=== PATIENT | female | born 1965 | race Caucasian/White ===

== ENCOUNTER 2021-05-18 04:16 | Day surgery (SDC) | payer OTHER, BC ==
[2021-05-13 17:17] VITALS: BMI 31.1
[2021-05-18] MEDS ORDERED: LIDOCAINE HCL 1%, 10 MG/ML (20ML VIAL) ONE (09:00)
[2021-05-18] MEDS ORDERED: BUPIVACAINE HCL/PF 0.5% (5MG/ML) 10 ML VIAL ONE ×2 (09:00→10:28)
[2021-05-18] MEDS ORDERED: ONDANSETRON 4 MG/2 ML VIAL IVPUSH PRN (09:10)
[2021-05-18] MEDS ORDERED: ACETAMINOPHEN 500 MG TABLET (FP) PO PRN (09:10)
[2021-05-18] MEDS ORDERED: MIDAZOLAM HCL 2 MG/2 ML SINGLE DOSE VIAL ONE (09:20)
[2021-05-18] MEDS ORDERED: DEXMEDETOMIDINE HCL 200 MCG/2 ML IVPB ONE (09:22)
[2021-05-18] MEDS ORDERED: LIDOCAINE HCL 1%, 10 MG/ML (20ML VIAL) NR ONE (09:35)
[2021-05-18] MEDS ORDERED: BUPIVACAINE HCL/PF 0.5% (5MG/ML) 10 ML VIAL IJ ONE ×2 (09:36)
[2021-05-18] MEDS ORDERED: ceFAZolin 2 GRAM PREMIX BAG IVPB ONE (09:40)
[2021-05-18] MEDS ORDERED: PROPOFOL 20 ML ONE (09:45)
[2021-05-18] MEDS ORDERED: ROCURONIUM BROMIDE 50 MG/5 ML SYRINGE ONE (09:45)
[2021-05-18] MEDS ORDERED: BACITRACIN 50,000 UNITS VIAL TP ONE (09:47)
[2021-05-18] MEDS ORDERED: TRIAMCINOLONE ACET 40MG/1ML VIAL ONE (10:28)
[2021-05-18] MEDS ORDERED: TRIAMCINOLONE ACET 40MG/1ML VIAL IM ONE (10:31)
[2021-05-18 14:17] VITALS: PULSE 72
[2021-05-18 14:36] VITALS: BP 128/70; TEMP 98
== END 2021-05-18 14:30 | disposition home or self-care (01) ==
LOC: JASU-SURG 04:16
PROVIDERS: ATTEND Podiatrist Foot Surgery
PROC: 0KNW0ZZ Release Left Foot Muscle, Open Approach (ICD-10-PCS; principal; 2021-05-18 09:00)
DX: D49.2 Neoplasm of unspecified behavior of bone, soft tissue, and skin (principal); I10 Essential (primary) hypertension; E11.9 Type 2 diabetes mellitus without complications
CPT/HCPCS: 73630-TC-LT; 82962; 88305-TC; 94760; 97116-GP